=== PATIENT | female | born 1975 | race Caucasian/White ===

== ENCOUNTER → 2020-11-20 | Day surgery (SDC) | payer OTHER ==
[~2020-11-20] MED LIST: AUGMENTIN 875-1 EACH PO; CIPRO500 MG PO; CLARITIN10 M2 PO; LANSOPRAZOLE30 MG PO; METRONIDAZOLE500 MG PO; MIRALAX17 GM PO; NORCO 5-325 TA1 EACH PO; PAROXETINE 10MG10 MG PO; VENTOLIN HFA IN18 GM INH; ZOFRAN8 MG PO
[2020-11-20 07:49] LABS: HCG (URINE) SCREEN NEGATIVE (NEGATIVE)
[2020-11-20 07:59] LABS: HCT 41.5 % (37.0-47.0); HGB 13.5 g/dl (12.5-16.0); MCH 29.2 pg (25.0-31.0); MCHC 32.5 g/dL (32.0-36.0); MCV 89.8 fL (78.0-100.0); MPV 10.9 fL (6.0-9.5); RBC 4.62 M/uL (4.20-5.40); RDW 13.6 % (11.5-14.0); WBC 6.1 K/uL (4.0-10.5)
[2020-11-20 08:24] LABS: ALBUMIN 3.7 g/dL (3.4-5.0); BILIRUBIN - TOTAL 0.3 mg/dL (0.2-1.0); BUN/CREAT RATIO (CALC) 19.4 RATIO; CREATININE 0.62 mg/dL (0.51-0.95); GLOBULIN (CALCULATION) 3.8 g/dL; POTASSIUM 4.1 mmol/L (3.5-5.1); TOTAL PROTEIN 7.5 g/dL (6.4-8.2)
== END | disposition home or self-care (01) ==
LOC: FAS 07:19
PROVIDERS: Anesthesiology; Surgery
DX: Z12.11 Encounter for screening for malignant neoplasm of colon (principal); K21.9 Gastro-esophageal reflux disease without esophagitis; F41.9 Anxiety disorder, unspecified; Z79.899 Other long term (current) drug therapy; Z20.822 Contact with and (suspected) exposure to COVID-19; Z86.59 Personal history of other mental and behavioral disorders; Z90.49 Acquired absence of other specified parts of digestive tract; Z98.890 Other specified postprocedural states; Z82.49 Family history of ischemic heart disease and other diseases of the circulatory system; Z83.3 Family history of diabetes mellitus
CPT/HCPCS: 36415; 80053; 84703; J2704; J7120

== ENCOUNTER 2021-11-30 11:35 | Emergency (ER) | payer OTHER ==
[2021-11-30] MEDS ORDERED: NORCO 5-325 TA1 EACH PO (12:39)
[2021-11-30] MEDS ORDERED: PREDNISONE 20MG20 MG PO (12:39)
== END 2021-11-30 13:19 | disposition home or self-care (01) ==
LOC: FER 11:35
DX: M25.462 Effusion, left knee (principal); M17.12 Unilateral primary osteoarthritis, left knee
CPT/HCPCS: 73560